=== PATIENT | male | born 1960 | race Caucasian/White ===

== ENCOUNTER 2021-11-23 16:06 | Emergency (ER) | payer BC ==
[2021-11-23] MEDS ORDERED: SODIUM CHLORIDE 0.9% 1,000 ML IV ONE (16:19)
[2021-11-23] MEDS ORDERED: FAMOTIDINE 20 MG/2 ML VIAL IV STA (16:19)
[2021-11-23] MEDS ORDERED: IPRATROPIUM-ALBUTEROL 3 ML NEB INHALATION STA (16:57)
--- NOTE | 2021-11-23 17:07 | ED ---
Allergic Reaction HPI - General Chief complaint: Allergic Reaction Stated complaint: allergic reaction to bee stings Time Seen by Provider: 11/23/21 16:30 Source: patient, EMS Mode of arrival: EMS Limitations: no limitations - History of Present Illness Initial Comments: 61-year-old male with past medical history of mastocytosis presents to the emergency department for bee sting. Patient was working with a bee hive, wearing retractive coverings when he got bit twice in the left upper eyelid and once in the left arm. He had only been bit once as a child and never had a bad reaction to bees. States that he became extremely lightheaded, else as if he was given a pass out so he laid on the ground. He is extremely short of breath. EMS arrived and administered an EpiPen, 125 of Solu-Medrol and 50 mg of Benadryl. His original oxygen saturations were low however improved from placed on oxygen. He had nausea without vomiting. No chest pain. No notable oral swelling. No other alleviating, precipitatng or modifying factors - Related Data Home Medications Medication Instructions Recorded Confirmed Cetirizine HCl [Zyrtec] 15 mg PO HS 11/23/21 11/23/21 Montelukast Sodium [Singulair] 10 mg PO HS 11/23/21 11/23/21 Previous Rx's Medication Instructions Recorded EPINEPHrine (Auto Inject) [Epipen] 0.3 mg IM ONCE PRN #2 each 11/23/21 diphenhydrAMINE [Benadryl] 25 mg PO QID PRN #30 capsule 11/23/21 predniSONE [Deltasone] 20 mg PO BID #10 tab 11/23/21 Allergies Allergy/AdvReac Type Severity Reaction Status Date / Time Bees Allergy Anaphylaxis Uncoded 11/23/21 17:25 Review of Systems ROS Statement: Those systems with pertinent positive or pertinent negative responses have been documented in the HPI. ROS Other: All systems not noted in ROS Statement are negative. 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 Absent: scleral icterus, conjunctival injection, periorbital swelling ENT exam: Present: normal exam, mucous membranes moist Neck exam: Present: normal inspection. Absent: tenderness, meningismus, lymphadenopathy Respiratory exam: Present: normal lung sounds bilaterally. Absent: respiratory distress, wheezes, rales, rhonchi, stridor Cardiovascular Exam: Present: regular rate, normal rhythm, normal heart sounds. Absent: systolic murmur, diastolic murmur, rubs, gallop, clicks GI/Abdominal exam: Present: soft, normal bowel sounds. Absent: distended, tenderness, guarding, rebound, rigid Extremities exam: Present: normal inspection, full ROM, normal capillary refill. Absent: tenderness, pedal edema, joint swelling, calf tenderness Back exam: Present: normal inspection Neurological exam: Present: alert, oriented X3, CN II-XII intact Psychiatric exam: Present: normal affect, normal mood Skin exam: Present: warm, dry, normal color, rash (chronic rash for patient. no new hives) Course Vital Signs 11/23/21 11/23/21 11/23/21 16:26 16:36 16:44 Temperature 97.3 F L Pulse Rate 98 83 Respiratory 22 20 20 Rate Blood Pressure 95/50 100/52 O2 Sat by Pulse 92 L 85 L Oximetry 11/23/21 11/23/21 11/23/21 17:38 18:50 18:56 Temperature Pulse Rate 81 92 96 Respiratory 18 Rate Blood Pressure 125/74 O2 Sat by Pulse 98 Oximetry 11/23/21 19:21 Temperature 98.3 F Pulse Rate 93 Respiratory 18 Rate Blood Pressure 110/78 O2 Sat by Pulse 96 Oximetry Medical Decision Making - Medical Decision Making Upon arrival patient was placed into room 10. Basic continuous pulse ox and cardiac monitoring. He is given 20 mg of Pepcid and a liter of fluid. Breathing treatment provided. Chest x-ray is obtained. Patient is watched for 2 hours in the emergency department without worsening swelling, hypoxia. Patient will be discharged home at this time and placed the steroids and Benadryl for the next 5 days. Patient prescribed an EpiPen. Instructed to follow up with his doctor to 4 days return for any new or worsening symptoms. Patient discharged home in stable condition - EKG Data EKG Comments: EKG demonstrates sinus rhythm with a rate of 98. OR interval 169. QRS 15. QTC 425. No acute ST segment elevations or depressions Disposition Clinical Impression: Hymenoptera reaction Disposition: HOME SELF-CARE Condition: Stable Instructions (If sedation given, give patient instructions): Insect Bite or Sting (ED) Additional Instructions: Please take the steroids twice daily starting tomorrow. Take Benadryl every 4 hours. Return to the emergency room for any new or worsening symptoms. If you have to use your EpiPen, you need to be seen at the hospital immediately after Prescriptions: diphenhydrAMINE [Benadryl] 25 mg PO QID PRN #30 capsule PRN Reason: Allergic Reaction predniSONE [Deltasone] 20 mg PO BID #10 tab EPINEPHrine (Auto Inject) [Epipen] 0.3 mg IM ONCE PRN #2 each PRN Reason: Anaphylaxis Is patient prescribed a controlled substance at d/c from ED?: No Referrals: Nonstaff,Physician [Primary Care Provider] - 1-2 days Time of Disposition: 18:24
--- NOTE | 2021-11-23 17:40 | XR ---
EXAMINATION TYPE: XR chest 2V DATE OF EXAM: 11/23/2021 COMPARISON: NONE HISTORY: Difficulty breathing TECHNIQUE: 2 views FINDINGS: Heart and mediastinum are normal. Lungs are clear. Diaphragm is normal. Bony thorax is inta ct. IMPRESSION: Normal chest.
[2021-11-23 17:42] VITALS: RESP 18
[2021-11-23 19:23] VITALS: BP 110/78; PULSE 93; TEMP 98.3
== END 2021-11-23 19:23 | disposition home or self-care (01) ==
LOC: EC 16:06
DX: T63.441A Toxic effect of venom of bees, accidental (unintentional), initial encounter (principal); R06.02 Shortness of breath
CPT/HCPCS: 71046; 93005; 94640; 96361; 96374; 99285